=== PATIENT | female | born 1975 | race Caucasian/White ===

== ENCOUNTER 2020-06-08 15:20 | Emergency (ER) | payer OTHER, MEDICAID ==
[~2020-06-08] VITALS: Ht 157.5 cm; Wt 75.3 kg
[2020-06-08 15:30] VITALS: Ht 157.5 cm; Wt 75.3 kg
[2020-06-08 19:38] VITALS: BP 126/70
== END 2020-06-08 19:38 | disposition home or self-care (01) ==
LOC: EDBD 15:20 → ED 15:20
DX: S16.1XXA Strain of muscle, fascia and tendon at neck level, initial encounter (principal); S46.912A Strain of unspecified muscle, fascia and tendon at shoulder and upper arm level, left arm, initial encounter; S80.12XA Contusion of left lower leg, initial encounter; S50.12XA Contusion of left forearm, initial encounter; V49.49XA Driver injured in collision with other motor vehicles in traffic accident, initial encounter; Y93.I9 Activity, other involving external motion; Y92.488 Other paved roadways as the place of occurrence of the external cause; Y99.8 Other external cause status
CPT/HCPCS: J1885

== ENCOUNTER 2020-07-18 14:32 | Emergency (ER) | payer MEDICAID ==
[~2020-07-18] VITALS: Ht 162.6 cm; Wt 75.7 kg
[2020-07-18 15:08] VITALS: Ht 162.6 cm; Wt 75.7 kg
[2020-07-18 18:22] VITALS: BP 128/74
== END 2020-07-18 16:15 | disposition home or self-care (01) ==
LOC: ED 14:32
DX: S80.12XA Contusion of left lower leg, initial encounter (principal); R10.12 Left upper quadrant pain; V49.9XXA Car occupant (driver) (passenger) injured in unspecified traffic accident, initial encounter; Y93.89 Activity, other specified; Y92.89 Other specified places as the place of occurrence of the external cause; Y99.8 Other external cause status
CPT/HCPCS: Q9967

== ENCOUNTER 2021-01-22 16:08 | Emergency (ER) | payer SELFPAY ==
[~2021-01-22] VITALS: Ht 162.6 cm; Wt 74.4 kg
[2021-01-22 16:23] VITALS: BP 126/67; Ht 162.6 cm; Wt 74.4 kg
[2021-01-22 17:22] LABS: BASOPHIL % 0.7 % (0.2-1.3); PLATELET COUNT 270 x10^3mcL (179-408); RED CELL DISTRIBUTION WIDTH 12.7 % (12.3-17.7)
[2021-01-22 17:25] LABS: CALCIUM 8.2 mg/dL (8.5-10.1); CARBON DIOXIDE 28.2 mmol/L (21-32); CHLORIDE SERUM 104 mmol/L (98-107); CREATININE SERUM 0.8 mg/dL (0.6-1.0); GFR1 > 60 mL/min; GLUCOSE SERUM 95 mg/dL (74-106); POTASSIUM SERUM 4.1 mmol/L (3.5-5.1); SODIUM SERUM 139 mmol/L (136-145)
[2021-01-22 17:31] LABS: ALKALINE PHOSPHATASE 64 U/L (46-116); ALT/SGPT 43 U/L (14-59); AMYLASE 92 U/L (25-115); AST/SGOT 20 U/L (15-37); BILIRUBIN TOTAL 0.65 mg/dL (0.20-1.00); LIPASE 139 IU/L (73-393); TOTAL PROTEIN, SERUM 6.4 g/dL (6.4-8.2)
[2021-01-22] MEDS ORDERED: NAPROXEN375 MG PO (17:32)
[2021-01-22 17:33] LABS: ALBUMIN 3.3 g/dL (3.4-5.0)
== END 2021-01-22 18:02 | disposition home or self-care (01) ==
LOC: ED 16:08
PROVIDERS: Emergency Medicine
DX: R10.12 Left upper quadrant pain (principal)
CPT/HCPCS: J1885